=== PATIENT | female | born 1940 | race Caucasian/White ===

== ENCOUNTER 2023-05-26 13:47 | Observation (INO) | payer OTHER ==
--- NOTE | 2023-05-26 14:23 | ED ---
General Adult HPI - General Chief complaint: Fall Stated complaint: Fall Time Seen by Provider: 05/26/23 13:49 Source: patient, EMS, RN notes reviewed Mode of arrival: EMS Limitations: no limitations - History of Present Illness Initial comments: Patient is a 83-year-old female presenting to the emergency department with weakness. Patient did sustain a fall for 5 days ago. Patient did bump the back of her head. Patient has been having some diffuse weakness since somewhere around that time. Patient is unclear exactly when. Patient occasionally is crawling around the house because that seems easier for her. Patient does have some back and leg discomfort. Patient does not believe she broke anything. No isolated area of weakness. Patient does not feel confused however is a poor historian. - Related Data Allergies Allergy/AdvReac Type Severity Reaction Status Date / Time bacitracin Allergy Unknown Verified 05/26/23 13:56 [From Neosporin ([id number])] neomycin Allergy Unknown Verified 05/26/23 13:56 [From Neosporin ([id number])] polymyxin B Allergy Unknown Verified 05/26/23 13:56 [From Neosporin ([id number])] Review of Systems ROS Statement: Those systems with pertinent positive or pertinent negative responses have been documented in the HPI. ROS Other: All systems not noted in ROS Statement are negative. Constitutional: Denies: fever Eyes: Denies: eye pain ENT: Denies: ear pain Respiratory: Denies: cough, dyspnea Cardiovascular: Denies: chest pain Endocrine: Denies: fatigue Neurological: Reports: as per HPI, weakness. Denies: headache Past Medical History Past Medical History: Hypertension Additional Past Medical History / Comment(s): Shingles in August 2022 History of Any Multi-Drug Resistant Organisms: None Reported Past Surgical History: No Surgical Hx Reported Past Psychological History: No Psychological Hx Reported Smoking Status: Never smoker Past Alcohol Use History: Rare Past Drug Use History: None Reported General Exam Limitations: no limitations General appearance: alert, in no apparent distress Head exam: Present: other (Posterior occipital soft tissue swelling) Eye exam: Present: normal appearance, PERRL, EOMI ENT exam: Present: normal oropharynx Neck exam: Present: normal inspection, full ROM. Absent: tenderness Respiratory exam: Present: normal lung sounds bilaterally Cardiovascular Exam: Present: regular rate, normal rhythm GI/Abdominal exam: Present: soft. Absent: tenderness Extremities exam: Present: normal inspection, full ROM. Absent: tenderness Back exam: Present: normal inspection. Absent: tenderness, vertebral tenderness Neurological exam: Present: alert, oriented X3, CN II-XII intact. Absent: motor sensory deficit Expanded Neurological exam: Present: protecting the airway Speech: Present: fluid speech Cranial nerves: EOM's Intact: Normal Sensory exam: Upper Extremity Light Touch: Normal, Lower Extremity Light Touch: Normal Motor strength exam: RUE: 5, LUE: 5 (Limited by pain), RLE: 5, LLE: 5 Eye Response: (4) open spontaneously Motor Response: (6) obeys commands Verbal Response: (5) oriented Psychiatric exam: Present: normal affect, normal mood Skin exam: Present: other (Bilateral anterior knee abrasion) Course Vital Signs 05/26/23 05/26/23 13:48 17:30 Temperature 98.1 F 97.4 F L Pulse Rate 83 100 Respiratory 18 18 Rate Blood Pressure 144/73 150/77 O2 Sat by Pulse 100 100 Oximetry EKG Findings - EKG Results: EKG: interpreted by ERMD, sinus rhythm, normal axis, normal QRS, normal ST/T Medical Decision Making - Medical Decision Making Head CT done secondary to head injury with weakness Was pt. sent in by a medical professional or institution (DAYRON Posada, WAREHOUSE STOCKER, urgent care, hospital, or assisted...) When possible be specific @ -No Did you speak to anyone other than the patient for history (EMS, parent, family, police, friend...)? What history was obtained from this source @ -No Did you review nursing and triage notes (agree or disagree)? Why? @ -I reviewed and agree with nursing and triage notes Were old charts reviewed (outside hosp., previous admission, EMS record, old EKG, old radiological studies, urgent care reports/EKG's, assisted records)? Report findings @ -No old records are available Differential Diagnosis (chest pain, altered mental status, abdominal pain women, abdominal pain men, vaginal bleeding, weakness, fever, dyspnea, syncope, headache, dizziness, GI bleed, back pain, seizure, CVA, palpatations, mental health, musculoskeletal)? @ -Differential Weakness: Hypoglycemia, shock, sepsis, hyponatremia, anemia, infection, [place], ETOH, adverse medicine reaction, overdose, stroke, this is not meant to be an all-inclusive list. EKG interpreted by me (3pts min.). @ -As above X-rays interpreted by me (1pt min.). @ -Patient refused chest x-ray. Lumbar x-ray and left femur x-ray show questionable rami fracture CT interpreted by me (1pt min.). @ -Left hip CT shows superior and inferior pubic rami fracture U/S interpreted by me (1pt. min.). @ -None done What testing was considered but not performed or refused? (CT, X-rays, U/S, labs)? Why? @ -None What meds were considered but not given or refused? Why? @ -None Did you discuss the management of the patient with other professionals (professionals i.e. , PA, WAREHOUSE STOCKER, lab, RT, psych nurse, social media assistant, manager resort, teacher, grant officer, complex case manager)? Give summary @ -Case was discussed with Dr. France who will admit covering trauma call Was smoking cessation discussed for >3mins.? @ -No Was critical care preformed (if so, how long)? @ -No Were there social determinants of health that impacted care today? How? (Homelessness, low income, unemployed, alcoholism, drug addiction, transportation, low edu. Level, literacy, decrease access to med. care, shelter, rehab)? @ -No Was there de-escalation of care discussed even if they declined (Discuss DNR or withdrawal of care, Hospice)? DNR status @ -No What co-morbidities impacted this encounter? (DM, HTN, Smoking, COPD, CAD, Cancer, CVA, ARF, Chemo, Hep., AIDS, mental health diagnosis, sleep apnea, morbid obesity)? @ -None Was patient admitted / discharged? Hospital course, mention meds given and route, prescriptions, significant lab abnormalities, going to OR and other pertinent info. @ -Patient reevaluated. Patient updated. Patient will be admitted. Admission orders written. Medicine consult placed. Undiagnosed new problem with uncertain prognosis? @ -No Drug Therapy requiring intensive monitoring for toxicity (Heparin, Nitro, Insulin, Cardizem)? @ -No Were any procedures done? @ -No Diagnosis/symptom? @ -Pubic rami fracture Acute, or Chronic, or Acute on Chronic? @ -Acute Uncomplicated (without systemic symptoms) or Complicated (systemic symptoms)? @ -Default Side effects of treatment? @ -No Exacerbation, Progression, or Severe Exacerbation? @ -No Poses a threat to life or bodily function? How? (Chest pain, [place], [place], pneumonia, PE, COPD, DKA, ARF, appy, cholecystitis, CVA, Diverticulitis, Homicidal, Suicidal, threat to staff... and all critical care pts) @ -No - Lab Data Result diagrams: 05/26/23 14:26 05/26/23 14:26 Lab Results 05/26/23 05/26/23 05/26/23 Range/Units 14:26 14:26 14:26 WBC 8.3 (3.8-10.6) k/uL RBC 4.14 (3.80-5.40) m/uL Hgb 13.4 (11.4-16.0) gm/dL Hct 40.3 (34.0-46.0) % MCV 97.3 (80.0-100.0) fL MCH 32.5 (25.0-35.0) pg MCHC 33.3 (31.0-37.0) g/dL RDW 12.7 (11.5-15.5) % Plt Count 254 (150-450) k/uL MPV 7.6 Neutrophils % 71 % Lymphocytes % 20 % Monocytes % 7 % Eosinophils % 0 % Basophils % 1 % Neutrophils # 5.9 (1.3-7.7) k/uL Lymphocytes # 1.6 (1.0-4.8) k/uL Monocytes # 0.5 (0-1.0) k/uL Eosinophils # 0.0 (0-0.7) k/uL Basophils # 0.1 (0-0.2) k/uL PT 10.1 (10.0-12.5) sec INR 0.9 (<1.2) APTT 21.7 L (22.0-30.0) sec Sodium (137-145) mmol/L Potassium (3.5-5.1) mmol/L Chloride (98-107) mmol/L Carbon Dioxide (22-30) mmol/L Anion Gap mmol/L BUN (7-17) mg/dL Creatinine (0.52-1.04) mg/dL Est GFR (CKD-EPI)AfAm (>60 ml/min/1.73 sqM) Est GFR (CKD-EPI)NonAf (>60 ml/min/1.73 sqM) Glucose (74-99) mg/dL Plasma Lactic Acid Servando (0.7-2.0) mmol/L Calcium (8.4-10.2) mg/dL Phosphorus (2.5-4.5) mg/dL Magnesium (1.6-2.3) mg/dL Total Bilirubin (0.2-1.3) mg/dL AST (14-36) U/L ALT (4-34) U/L Alkaline Phosphatase (38-126) U/L Creatine Kinase (30-135) U/L Troponin I (0.000-0.034) ng/mL Total Protein (6.3-8.2) g/dL Albumin (3.5-5.0) g/dL TSH (0.465-4.680) mIU/L Free T4 (0.78-2.19) ng/dL Free T3 pg/mL (2.8-5.3) pg/ml Urine Color Yellow Urine Appearance Clear (Clear) Urine pH 5.5 (5.0-8.0) Ur Specific [place] 1.020 (1.001-1.035) Urine Protein Trace H (Negative) Urine Glucose (UA) Negative (Negative) Urine Ketones 2+ H (Negative) Urine Blood Negative (Negative) Urine Nitrite Negative (Negative) Urine Bilirubin Negative (Negative) Urine Urobilinogen <2.0 (<2.0) mg/dL Ur Leukocyte Esterase Small H (Negative) Urine RBC 3 (0-5) /hpf Urine WBC 4 (0-5) /hpf Ur Squamous Epith Cells 1 (0-4) /hpf Urine Bacteria Rare H (None) /hpf Urine Mucus Moderate H (None) /hpf 05/26/23 05/26/23 05/26/23 Range/Units 14:26 14:26 14:32 WBC (3.8-10.6) k/uL RBC (3.80-5.40) m/uL Hgb (11.4-16.0) gm/dL Hct (34.0-46.0) % MCV (80.0-100.0) fL MCH (25.0-35.0) pg MCHC (31.0-37.0) g/dL RDW (11.5-15.5) % Plt Count (150-450) k/uL MPV Neutrophils % % Lymphocytes % % Monocytes % % Eosinophils % % Basophils % % Neutrophils # (1.3-7.7) k/uL Lymphocytes # (1.0-4.8) k/uL Monocytes # (0-1.0) k/uL Eosinophils # (0-0.7) k/uL Basophils # (0-0.2) k/uL PT (10.0-12.5) sec INR (<1.2) APTT (22.0-30.0) sec Sodium 141 (137-145) mmol/L Potassium 3.3 L (3.5-5.1) mmol/L Chloride 106 (98-107) mmol/L Carbon Dioxide 22 (22-30) mmol/L Anion Gap 13 mmol/L BUN 17 (7-17) mg/dL Creatinine 0.59 (0.52-1.04) mg/dL Est GFR (CKD-EPI)AfAm >90 (>60 ml/min/1.73 sqM) Est GFR (CKD-EPI)NonAf 86 (>60 ml/min/1.73 sqM) Glucose 103 H (74-99) mg/dL Plasma Lactic Acid Servando 1.7 (0.7-2.0) mmol/L Calcium 9.3 (8.4-10.2) mg/dL Phosphorus 3.7 (2.5-4.5) mg/dL Magnesium 2.3 (1.6-2.3) mg/dL Total Bilirubin 1.6 H (0.2-1.3) mg/dL AST 38 H (14-36) U/L ALT 31 (4-34) U/L Alkaline Phosphatase 65 (38-126) U/L Creatine Kinase 79 (30-135) U/L Troponin I <0.012 (0.000-0.034) ng/mL Total Protein 7.0 (6.3-8.2) g/dL Albumin 4.2 (3.5-5.0) g/dL TSH 3.400 (0.465-4.680) mIU/L Free T4 1.84 (0.78-2.19) ng/dL Free T3 pg/mL 3.1 (2.8-5.3) pg/ml Urine Color Urine Appearance (Clear) Urine pH (5.0-8.0) Ur Specific [place] (1.001-1.035) Urine Protein (Negative) Urine Glucose (UA) (Negative) Urine Ketones (Negative) Urine Blood (Negative) Urine Nitrite (Negative) Urine Bilirubin (Negative) Urine Urobilinogen (<2.0) mg/dL Ur Leukocyte Esterase (Negative) Urine RBC (0-5) /hpf Urine WBC (0-5) /hpf Ur Squamous Epith Cells (0-4) /hpf Urine Bacteria (None) /hpf Urine Mucus (None) /hpf Disposition Clinical Impression: Pubic ramus fracture Disposition: ADMITTED IP TO THIS HOSP Is patient prescribed a controlled substance at d/c from ED?: No Referrals: Dakota Martinez MD [Primary Care Provider] - 1-2 days Time of Disposition: 18:21
[2023-05-26 14:47] LABS: Basophils # (A) 0.1 k/uL (0-0.2); Basophils % (A) 1 %; Eosinophils % (A) 0 %; HCT 40.3 % (34.0-46.0); HGB 13.4 gm/dL (11.4-16.0); Lymphocytes # (A) 1.6 k/uL (1.0-4.8); Lymphocytes % (A) 20 %; MCH 32.5 pg (25.0-35.0); MCHC 33.3 g/dL (31.0-37.0); MCV 97.3 fL (80.0-100.0); Mean Platelet Volume 7.6; Monocytes # (A) 0.5 k/uL (0-1.0); Monocytes % (A) 7 %; Neutrophils # (A) 5.9 k/uL (1.3-7.7); Neutrophils % (A) 71 %; Platelet Count 254 k/uL (150-450); RBC 4.14 m/uL (3.80-5.40); RDW 12.7 % (11.5-15.5); WBC 8.3 k/uL (3.8-10.6)
[2023-05-26 15:11] LABS: ALT 31 U/L (4-34); AST 38 U/L (14-36); African American GFR (CKD) >90 (>60 ml/min/1.73 sqM); Albumin 4.2 g/dL (3.5-5.0); Alkaline Phosphatase 65 U/L (38-126); Anion Gap 13 mmol/L; Blood Urea Nitrogen 17 mg/dL (7-17); Calcium 9.3 mg/dL (8.4-10.2); Carbon Dioxide 22 mmol/L (22-30); Chloride 106 mmol/L (98-107); Creatine Kinase 79 U/L (30-135); Glucose 103 mg/dL (74-99); Magnesium 2.3 mg/dL (1.6-2.3); Non-African American GFR(CKD) 86 (>60 ml/min/1.73 sqM); Phosphorus 3.7 mg/dL (2.5-4.5); Potassium 3.3 mmol/L (3.5-5.1); Sodium 141 mmol/L (137-145); Total Bilirubin 1.6 mg/dL (0.2-1.3)
[2023-05-26 15:23] LABS: INR 0.9 (<1.2); Prothrombin Time 10.1 sec (10.0-12.5)
[2023-05-26 15:26] LABS: Partial Thromboplastin Time 21.7 sec (22.0-30.0)
--- NOTE | 2023-05-26 15:35 | CT ---
EXAMINATION TYPE: CT brain wo con CT DLP: 1095.2 mGycm, Automated exposure control for dose reduction was used. DATE OF EXAM: 05/26/2023 3:09 PM COMPARISON: None. CLINICAL INDICATION:Female, 83 years old with history of weakness, weakness TECHNIQUE: Brain: Axial CT images of the brain were obtained with coronal and sagittal reformats created and rev iewed. Contrast used: None. Oral contrast used: None. FINDINGS: Brain: Extra-axial spaces: No abnormal extra-axial fluid collections. Ventricular system: Within normal limits Cerebral parenchyma: No acute intraparenchymal hemorrhage or mass effect. The bell-white junction is well differentiated. Cerebellum: Unremarkable. Mass effect: No evidence of midline shift. Intracranial vasculature: unremarkable Soft tissues: Normal. Calvarium/osseous structures: No depressed skull fracture. Paranasal sinuses and mastoid air cells: Mild scattered paranasal sinus disease. Visualized orbits: Orbital contents are intact. IMPRESSION: No acute intracranial process.
--- NOTE | 2023-05-26 16:03 | XR ---
EXAMINATION TYPE: XR femur LT DATE OF EXAM: 05/26/2023 COMPARISON: NONE HISTORY: Pain TECHNIQUE: 4 views of the left femur are obtained. FINDINGS: There is diffuse osteopenia. There is complete loss of joint space of the left hip with rem odeling of the acetabulum. Moderate osteoarthritis of the knee. IMPRESSION: 1. Severe arthropathy of the hip. Given the deformity associated the arthropathy and diffuse osteopen ia if there is difficulty with weightbearing or high clinical suspicion for fracture would then recom mend CT scan.
--- NOTE | 2023-05-26 16:07 | XR ---
EXAM TYPE: LUMBAR SPINE X RAY SERIES COMPARISON: NONE HISTORY: Pain TECHNIQUE: 4 views are submitted. FINDINGS: Severe levoscoliosis with diffuse osteopenia and multilevel severe degenerative disc disease. There i s a vascular calcifications of the aorta. Mild aneurysmal dilation suspected measuring approximately 3 cm. Lateral views are nondiagnostic due to diffuse osteopenia. Severe multilevel facet arthropathy. No ob vious compression deformity noted on the frontal view. Multilevel foraminal encroachment suspected. IMPRESSION: 1. Markedly limited exam demonstrates a severe scoliosis, diffuse osteopenia and severe degenerative disc disease at all levels. 2. Lateral views are difficult to evaluate for compression fracture due to osteopenia and technique. Frontal view demonstrates no diagnostic evidence of acute compression deformity. 3. Borderline abdominal aortic aneurysm measuring 3 cm.
[2023-05-26 16:20] LABS: T4, Free (Free Thyroxine) 1.84 ng/dL (0.78-2.19)
[2023-05-26 17:25] LABS: Appearance,Urine Clear (Clear); Bacteria,Urine Rare /hpf; Bilirubin,Urine Negative (Negative); Blood,Urine Negative (Negative); Color,Urine Yellow; Glucose,Urine (UA) Negative (Negative); Leukocyte Esterase,Urine Small (Negative); Mucus,Urine Moderate /hpf; Nitrite,Urine Negative (Negative); PH, Urine 5.5 (5.0-8.0); Protein,Urine Trace (Negative); RBC,Urine 3 /hpf (0-5); Squamous Epithelial Cell,Urine 1 /hpf (0-4); Urobilinogen,Urine <2.0 mg/dL (<2.0); WBC,Urine 4 /hpf (0-5)
[2023-05-26 17:38] LABS: Ketones,Urine 2+ (Negative)
--- NOTE | 2023-05-26 17:58 | CT ---
EXAMINATION TYPE: CT hip LT wo con CT DLP: 337.4 mGycm, Automated exposure control for dose reduction was used. DATE OF EXAM: 05/26/2023 5:44 PM COMPARISON: . Extremity radiograph same day. CLINICAL INDICATION:Female, 83 years old with history of trauma; PHH, pain after fall TECHNIQUE: Axial images were obtained of the CT hip LT wo con, Additional coronal and sagittal reform atted images and soft tissue and bone window were obtained for review. Contrast used: mL of , (None if empty) Oral contrast used: (None if empty) FINDINGS: Degeneration with joint space tearing osteophyte formation of the left hip. There is commin uted fractures of the left pubic symphysis involving the medial superior and inferior pubic ramus. Th e other osseous structures including the femur appear intact. No evidence for acute intrapelvic proce ss. IMPRESSION: 1. Acute comminuted fracture of the left pubic symphysis with deformity of the superior and inferior pubic rami medially. Femur appears intact. 2. Severe degeneration changes of the left hip with large osteophytes and joint space narrowing.
[2023-05-26] MEDS ORDERED: traMADol 50 MG TAB PO PRN (18:22)
[2023-05-26] MEDS ORDERED: NALOXONE 0.4 MG/ML 1 ML VIAL IV PRN (18:22)
[2023-05-26] MEDS ORDERED: ACETAMINOPHEN TAB 325 MG TAB PO PRN (18:22)
[2023-05-27] MEDS: MORPHINE SULFATE 4 MG/ML SYRINGE IV PRN (07:50)
--- NOTE | 2023-05-27 09:57 | P.HPOR ---
History of Present Illness H&P Date: 05/27/23 Chief Complaint: Pubic rami fractures left This is an 83-year-old female admitted through the emergency department with history of fall 6 days ago when she slipped on some ice while getting her mail. She was able to get herself up and back into the house but has been having increasing difficulty ambulating around the house to the point where she began crawling to get around the house. She finally did present to the emergency department yesterday with the help of her neighbor. On exam and x-ray she was found to have superior/inferior pubic rami fractures on the left. She was also complaining of some low back pain which is improved slightly today. She is admitted for further orthopedic evaluation and possible rehab placement. Past Medical History Past Medical History: Hypertension Additional Past Medical History / Comment(s): Shingles in August 2022 History of Any Multi-Drug Resistant Organisms: None Reported Past Surgical History: No Surgical Hx Reported Additional Past Surgical History / Comment(s): Hx L UA fx at age 3/4 with repair Past Anesthesia/Blood Transfusion Reactions: No Reported Reaction Past Psychological History: No Psychological Hx Reported Smoking Status: Never smoker Past Alcohol Use History: Rare Past Drug Use History: None Reported Medications and Allergies Home Medications Medication Instructions Recorded Confirmed Type atenoloL [Tenormin] 25 mg PO HS 05/26/23 05/27/23 History Allergies Allergy/AdvReac Type Severity Reaction Status Date / Time bacitracin Allergy Unknown Verified 05/26/23 18:42 [From Neosporin ([id number])] neomycin Allergy Unknown Verified 05/26/23 18:42 [From Neosporin ([id number])] polymyxin B Allergy Unknown Verified 05/26/23 18:42 [From Neosporin ([id number])] Physical Examination This is a pleasant 83-year-old female in no acute distress. She is alert and oriented x 3. Exam of the head neck revealed no obvious deformity. She has full cervical spine motion without difficulty or pain. She is nontender with palpation about cervical spine or paraspinal musculature. Exam of the upper extremities is unremarkable. She has fairly good motion to the shoulders, elbows, wrists and fingers bilaterally. Neurovascular status to the upper extremities is intact. Exam of the thoracic and lumbar spine reveal a curvature deformity to the lumbar spine. She has minimal tenderness to palpation about the lumbar spine and paraspinal musculature. Exam of the lower extremities reveals no obvious deformity. She is more comfortable sitting in a flexed position of the hips and knees. There is mild pain with motion of the left leg. Pain is located primarily in the groin and upper thigh. She has full foot and ankle motion bilaterally. Neurovascular status to the lower extremities is intact. Results X-rays of the lumbar spine reveal scoliosis and degenerative changes. There is no obvious fracture noted on x-rays. There is diffuse osteopenia. X-ray and CT of the pelvis and left hip reveal mildly displaced superior and inferior pubic rami fractures on the left. Mild degenerative changes to the left hip noted. - Labs Labs: Abnormal Lab Results - Last 24 Hours (Table) 05/26/23 05/26/23 05/26/23 Range/Units 14:26 14:26 14:26 APTT 21.7 L (22.0-30.0) sec Potassium 3.3 L (3.5-5.1) mmol/L Glucose 103 H (74-99) mg/dL Total Bilirubin 1.6 H (0.2-1.3) mg/dL AST 38 H (14-36) U/L Urine Protein Trace H (Negative) Urine Ketones 2+ H (Negative) Ur Leukocyte Esterase Small H (Negative) Urine Bacteria Rare H (None) /hpf Urine Mucus Moderate H (None) /hpf H & H 05/26/23 Range/Units 14:26 Hgb 13.4 (11.4-16.0) gm/dL Hct 40.3 (34.0-46.0) % Coagulation 05/26/23 Range/Units 14: INR 0.9 (<1.2) Result Diagrams: 05/26/23 14:26 05/26/23 14:26 Assessment and Plan Assessment: 1 left groin pain. 2. Superior/inferior pubic rami fractures left. 3. Low back pain. 4. Scoliosis lumbar spine. Plan: The clinical and radiographic findings are discussed with the patient. The nature of her fractures are discussed. Is recommended she continue with conservative treatment. She may be weightbearing as tolerated with walker. I will order physical therapy and Occupational Therapy to evaluate for possible rehab placement. The patient is insistent that she will be going home, however.
--- NOTE | 2023-05-27 12:25 | P.CONS ---
History of Present Illness - Reason for Consult Consult date: 05/27/23 Medical management - History of Present Illness History of present illness; she is a 83-year-old lady with past medical history significant for hypertension who presented to the ER for generalized weakness and fall. Patient apparently has been complaining of generalized weakness for the last few days, patient apparently fell on ice while getting her mail, following that she started having difficulty in ambulating and started getting weak. Patient has been so weak that she has been crawling around the house. There is no complaint of fever or chills. There is no complaint chest pain shortness of breath. There is no complaint of loss of consciousness. Patient has been complaining of back pain and left hip pain. Because of the symptoms, patient came to the ER Initial lab work done in the ER showed WBC 8.3, hemoglobin 13.4, platelet count 254, sodium 141, potassium 3.3, BUN 17, creatinine 0.59, glucose 103 bilirubin 1.6, AST 38 EKG done in the ER showed heart rate of 68, [place] interval 171 QRS 82, no ST segmen t elevation or depression seen, no T-wave inversions seen. X-ray lumbar spine done showed severe scoliosis, diffuse osteopenia and severe degenerative disc disease at all levels CT head done showed no acute intracranial process X-ray female left showed severe arthropathy of the hip CT hip done showed acute comminuted fracture of the left pubic symphysis with deformity of of the superior and inferior pubic rami Patient admitted to orthopedic service REVIEW OF SYSTEMS: CONSTITUTIONAL: No fever, no malaise, no fatigue. HEENT: No recent visual problems or hearing problems. Denied any sore throat. CARDIOVASCULAR: No chest pain, orthopnea, PND, no palpitations, no syncope. PULMONARY: No shortness of breath, no cough, no hemoptysis. GASTROINTESTINAL: No diarrhea, no nausea, no vomiting, no abdominal pain. NEUROLOGICAL: No headaches, no weakness, no numbness. HEMATOLOGICAL: Denies any bleeding or petechiae. GENITOURINARY: Denies any burning micturition, frequency, or urgency. MUSCULOSKELETAL/RHEUMATOLOGICAL: As mentioned above ENDOCRINE: Denies any polyuria or polydipsia. The rest of the 14-point review of systems is negative. PHYSICAL EXAMINATION: GENERAL: The patient is alert and oriented x3, not in any acute distress. Well developed, well nourished. HEENT: Pupils are round and equally reacting to light. EOMI. No scleral icterus. No conjunctival pallor. Normocephalic, atraumatic. No pharyngeal erythema. No thyromegaly. CARDIOVASCULAR: S1 and S2 present. No murmurs, rubs, or gallops. PULMONARY: Chest is clear to auscultation, no wheezing or crackles. ABDOMEN: Soft, nontender, nondistended, normoactive bowel sounds. No palpable organomegaly. MUSCULOSKELETAL: No joint swelling or deformity. EXTREMITIES: No cyanosis, clubbing, or pedal edema. NEUROLOGICAL: Gross neurological examination did not reveal any focal deficits. SKIN: No rashes. Assessment and plan Fall Acute fracture of the left pubic symphysis with deformity of the superior and inferior pubic rami Hypokalemia Hypertension Monitor vital signs Monitor CBC Monitor CMP Continue pain management per orthopedics Continue DVT prophylaxis per orthopedics Resume home meds PT and OT consulted Labs and medication were reviewed.. Continue same treatment. Continue with symptomatic treatment. Resume home medication. Monitor labs and vitals. DVT and GI prophylaxis. Further recommendations as per clinical course of the patient Dictation was produced using [employer] dictation software. please excuse any grammatical, word or spelling errors. Past Medical History Past Medical History: Hypertension Additional Past Medical History / Comment(s): Shingles in August 2022 History of Any Multi-Drug Resistant Organisms: None Reported Past Surgical History: No Surgical Hx Reported Additional Past Surgical History / Comment(s): Hx L UA fx at age 3/4 with repair Past Anesthesia/Blood Transfusion Reactions: No Reported Reaction Past Psychological History: No Psychological Hx Reported Smoking Status: Never smoker Past Alcohol Use History: Rare Past Drug Use History: None Reported Medications and Allergies Home Medications Medication Instructions Recorded Confirmed Type atenoloL [Tenormin] 25 mg PO HS 05/26/23 05/27/23 History Allergies Allergy/AdvReac Type Severity Reaction Status Date / Time bacitracin Allergy Unknown Verified 05/26/23 18:42 [From Neosporin ([id number])] neomycin Allergy Unknown Verified 05/26/23 18:42 [From Neosporin ([id number])] polymyxin B Allergy Unknown Verified 05/26/23 18:42 [From Neosporin ([id number])] Physical Exam Vitals: Vital Signs Temp Pulse Pulse Resp BP BP Pulse Ox 05/27/23 09:41 97 05/27/23 08:00 97.7 F 66 17 117/67 96 05/27/23 00:52 98.0 F 62 15 135/72 96 05/26/23 20:30 97.6 F 92 16 148/72 99 05/26/23 20:00 99 F 101 H 15 171/73 90 L 05/26/23 17:30 97.4 F L 100 18 150/77 100 05/26/23 13:48 98.1 F 83 18 144/73 100 Intake and Output 05/26/23 05/27/23 05/27/23 22:59 06:59 14:59 Other: # Voids 1 Weight 48.534 kg Results CBC & Chem 7: 05/26/23 14:26 05/26/23 14:26 Labs: Abnormal Lab Results - Last 24 Hours (Table) 05/26/23 05/26/23 05/26/23 Range/Units 14:26 14:26 14:26 APTT 21.7 L (22.0-30.0) sec Potassium 3.3 L (3.5-5.1) mmol/L Glucose 103 H (74-99) mg/dL Total Bilirubin 1.6 H (0.2-1.3) mg/dL AST 38 H (14-36) U/L Urine Protein Trace H (Negative) Urine Ketones 2+ H (Negative) Ur Leukocyte Esterase Small H (Negative) Urine Bacteria Rare H (None) /hpf Urine Mucus Moderate H (None) /hpf
[2023-05-27 14:52] VITALS: BMI 17.2
--- NOTE | 2023-05-28 12:54 | P.PN ---
Subjective Progress Note Date: 05/28/23 she is a 83-year-old lady with past medical history significant for hypertension who presented to the ER for generalized weakness and fall. Patient apparently has been complaining of generalized weakness for the last few days, patient apparently fell on ice while getting her mail, following that she started having difficulty in ambulating and started getting weak. Patient has been so weak that she has been crawling around the house. There is no complaint of fever or chills. There is no complaint chest pain shortness of breath. There is no complaint of loss of consciousness. Patient has been complaining of back pain and left hip pain. Because of the symptoms, patient came to the ER Initial lab work done in the ER showed WBC 8.3, hemoglobin 13.4, platelet count 254, sodium 141, potassium 3.3, BUN 17, creatinine 0.59, glucose 103 bilirubin 1.6, AST 38 EKG done in the ER showed heart rate of 68, [place] interval 171 QRS 82, no ST segment elevation or depression seen, no T-wave inversions seen. X-ray lumbar spine done showed severe scoliosis, diffuse osteopenia and severe degenerative disc disease at all levels CT head done showed no acute intracranial process X-ray female left showed severe arthropathy of the hip CT hip done showed acute comminuted fracture of the left pubic symphysis with deformity of of the superior and inferior pubic rami Patient admitted to orthopedic service 05/27. Patient seen and examined. Still complaining of left hip pain. States she ambulated this morning. Denies any lightheadedness or dizziness REVIEW OF SYSTEMS: CONSTITUTIONAL: No fever, no malaise,. CARDIOVASCULAR: No chest pain, no palpitations, no syncope. PULMONARY: No shortness of breath, no cough, GASTROINTESTINAL: No diarrhea, no nausea, no vomiting, no abdominal pain. NEUROLOGICAL: No headaches, no weakness, PHYSICAL EXAMINATION: GENERAL: The patient is alert and oriented x3, not in any acute distress. Well developed, well nourished. HEENT: Pupils are round and equally reacting to light. EOMI. No scleral icterus. No conjunctival pallor. Normocephalic, atraumatic. No pharyngeal erythema. No thyromegaly. CARDIOVASCULAR: S1 and S2 present. No murmurs, rubs, or gallops. PULMONARY: Chest is clear to auscultation, no wheezing or crackles. ABDOMEN: Soft, nontender, nondistended, normoactive bowel sounds. No palpable organomegaly. MUSCULOSKELETAL: No joint swelling or deformity. EXTREMITIES: No cyanosis, clubbing, or pedal edema. NEUROLOGICAL: Gross neurological examination did not reveal any focal deficits. SKIN: No rashes. Assessment and plan Fall Acute fracture of the left pubic symphysis with deformity of the superior and inferior pubic rami Hypokalemia Hypertension Monitor vital signs Monitor CBC Monitor CMP Continue pain management per orthopedics Continue DVT prophylaxis per orthopedics PT and OT following Orthopedic following Labs and medication were reviewed.. Continue same treatment. Continue with symptomatic treatment. Resume home medication. Monitor labs and vitals. DVT and GI prophylaxis. Further recommendations as per clinical course of the patient Dictation was produced using [employer] dictation software. please excuse any gram matical, word or spelling errors. Objective - Vital Signs Vital signs: Vital Signs Temp 97.9 F 05/28/23 06:57 Pulse 63 05/28/23 07:45 Resp 16 05/28/23 07:45 BP 109/68 05/28/23 06:57 Pulse Ox 97 05/28/23 06:57 FiO2 Intake & Output 05/27/23 05/28/23 05/28/23 18:59 06:59 18:59 Intake Total 250 Balance 250 Weight 48.534 kg Intake: Oral 250 Other: # Voids 1 2 - Labs CBC & Chem 7: 05/26/23 14:26 05/26/23 14:26
--- NOTE | 2023-05-28 13:38 | P.DS ---
Providers Date of admission: 05/26/23 18:22 Expected date of discharge: 05/28/23 Attending physician: Kathe France DO Consults: 05/26/23 18:22 Consult Physician Urgent Consulting Provider: Jose Navas Consult Reason/Comments: medical care Do you want consulting provider notified?: Yes Primary care physician: Dakota Martinez - Discharge Diagnosis(es) (1) Fall Current Visit: Yes Status: Acute (2) Pubic ramus fracture Current Visit: Yes Status: Acute Hospital Course: This is an 83-year-old female who sustained a fracture of her left superior and inferior pubic rami after a fall at home about 1 week ago. The patient presente d for evaluation in the emergency room. X-rays and a CT scan of the left hip done in the emergency room revealed fractures of the left superior and inferior pubic rami. Conservative management is recommended. Patient has been using a walker to ambulate and has worked with physical therapy. The options for inpatient rehab versus discharge home with home care were discussed and the patient opts for discharge home with home care. Patient states that she has a neighbor who will support her upon discharge. The patient is doing well postoperatively. Labs and vital signs are stable on day of discharge. On day of discharge there is minimal soft tissue swelling to the left lower extremity. Patient has full range of motion of the left hip and knee without discomfort. Patient has full foot and ankle motion without difficulty or pain. Calf is soft and nontender to palpation. Neurovascular status to the left lower extremity is intact. Patient is discharged home in good condition. Please see med rec for accurate list of home medications. Plan - Discharge Summary Discharge Rx Participant: Yes New Discharge Prescriptions: New traMADol HCl [Ultram] 50 mg PO Q6H PRN #28 tab PRN Reason: Pain Sennosides [Senokot] 2 tab PO DAILY PRN #60 tablet PRN Reason: Constipation No Action atenoloL [Tenormin] 25 mg PO HS Discharge Medication List atenoloL [Tenormin] 25 mg PO HS 05/26/23 [History] Sennosides [Senokot] 2 tab PO DAILY PRN #60 tablet 05/28/23 [Rx] traMADol HCl [Ultram] 50 mg PO Q6H PRN #28 tab 05/28/23 [Rx] Follow up Appointment(s)/Referral(s): [facility] [[facility]] - 1 Week ([facility] will call you to arrange a visit) Dakota Martinez MD [Primary Care Provider] - 1-2 days Kathe France DO [Doctor of Osteopathic Medicine] - 10 Days Activity/Diet/Wound Care/Special Instructions: Weightbearing as tolerated to the left lower extremity using a walker. Please take medications as prescribed. Please follow-up with [facility] and call with any questions or concerns, . Discharge Disposition: HOME WITH HOME HEALTH SERVICES
[2023-05-28 14:06] VITALS: BP 112/63; PULSE 74; RESP 17; TEMP 98
== END 2023-05-28 17:09 | disposition home health service (06) ==
LOC: EC 13:47 → 4SSUR 18:22
PROVIDERS: ADMIT Orthopaedic Surgery Hand Surgery; ATTEND Orthopaedic Surgery Hand Surgery
DX: S32.592A Other specified fracture of left pubis, initial encounter for closed fracture (principal); W00.0XXA Fall on same level due to ice and snow, initial encounter; Y93.01 Activity, walking, marching and hiking; Y92.007 Garden or yard of unspecified non-institutional (private) residence as the place of occurrence of the external cause; I10 Essential (primary) hypertension; E87.6 Hypokalemia; M41.86 Other forms of scoliosis, lumbar region; Z79.899 Other long term (current) drug therapy; Z88.1 Allergy status to other antibiotic agents
CPT/HCPCS: 96374; 99285; 36415; 94760; 93005; 97530 ×2; 97161; 97535; 97166; 84439; 84481; 80053; 82550; 83605; 83735; 84100; 84443; 84484; 85025; 85610; 85730; 81001; 72100; 73552; 70450; 73700; G0378 ×3; J2270